=== PATIENT | female | born 1995 | race Caucasian/White ===

== ENCOUNTER 2017-07-22 09:31 | Emergency (ER) | payer SELFPAY ==
[2017-07-22 09:32] VITALS: BP 127/74; PULSE 80; RESP 16; TEMP 36.8; O2SAT 99; BMI 24.0
[2017-07-22 09:39] VITALS: BP 115/62; PULSE 96; RESP 96; O2SAT 94
--- NOTE | 2017-07-22 09:57 | EKG12_ITS ---
Test Reason : CP Blood Pressure : / mmHG Vent. Rate : 078 BPM Atrial Rate : 078 BPM P-R Int : 126 ms QRS Dur : 082 ms QT Int : 364 ms P-R-T Axes : 070 086 063 degrees QTc Int : 414 ms Normal sinus rhythm Normal ECG Confirmed by BHAVANI PAGE ([id number]), make up editor CHAPARRITA HARRIS ([id number] on 07/26/2017 1:09:30 PM Referred By: CASIE/BRIAN Confirmed By:BHAVANI PAGE
--- NOTE | 2017-07-22 10:00 | ED.VISSUMM ---
- ER Visit Summary Date of Service: 07/22/17 Chief Complaint: Pain, shortness of breath, fatigue, diffuse body aches for 2 months. History of Present Illness: The patient is a 22 F E Suzi. Patient has never been . She has required a blood transfusion one time when she had a fibroid. She states she was diagnosed with bronchitis around May 30. Since that time she has not felt well. She has chest pain from time to time., Shortness of breath, fatigue. She states she has had a 20 pound weight gain in the last 6 months. She denies any melena. Her last menstrual period was approximately a month ago and was normal in timing duration. She denies any dysuria. States she has had nausea and decreased intake. Really denies any abdominal pain. She does have a history of one time of having underactive thyroid but is currently not has not been on medications and moved out of that states it was not followed up for that. She is upcoming appointment with a local primary care physician. She has no history of PE or DVT. She does not smoke. She has had no recent surgery, immobilization or hospitalization. She has had no hemoptysis. She has had no leg pain or swelling. There is no family history of clotting disorders or blood clots. She is not on any type of control pill and she is a non-smoker. No risk factors for a PE or DVT. Physical Examination: Well appearing young female. Vital signs are stable afebrile. Pulse ox 99% room air no signs of hypoxia. HEENT exam is unremarkable. Neck nontender. No lymphadenopathy. Trachea midline. Lungs clear to auscultation bilaterally. Heart regular rate and rhythm no murmur. Abdomen soft and nontender. Normal bowel sounds no peritoneal signs. No giving way or masses. There is no inguinal or axillary or cervical lymphadenopathy. She is moving all 4 extremities. Neurovascular intact. Calves are nontender without edema. Neurologic exam is normal. She does have slightly flat affect. Back exam normal. Skin exam normal. Test Results: Radiologist. EKG sinus rhythm rate is 78 no acute abnormalities. CBC completely normal with an H&H of 14 and 41 and a normal white count. BMP normal with normal creatinine and gap. Serum test negative. TSH normal at 2.34. Emergency Department Course and Treatment: Since clinical exam is basically normal. She will be evaluated for her multitude of complaints of chest pain, shortness of breath and fatigue. Clinically I do not think this is cardiac in etiology and she is a normal EKG. I also do not feel this is a blood clot. Treatment Plan: Repeat exam the patient is doing well at 1116. I went over all testing with her and she will be discharged to home. Disposition: discharge Impression: Acute chest pain, fatigue and weight gain of uncertain etiology This note was generated with [employer] dictation software. It may contain incorrect words, spelling, and punctuation that were not noted in review of the chart prior to signing ED Disposition - Plan for ED Patient: Chief Complaint: Chest Pain Referrals: Care Physician,No Primary [NON-STAFF] -
--- NOTE | 2017-07-22 10:07 | RAD_ITS ---
STUDY: X-RAY CHEST REASON FOR EXAM: Female, 22 years old. Chest pain TECHNIQUE: A single frontal view of the chest was obtained. COMPARISON: May 29, 2017 FINDINGS: The lungs are adequately aerated. There are no focal airspace opacities. There is no demonstrated pleural abnormality. The cardiac silhouette is normal in size. The mediastinum and hilar regions are unremarkable. Normal visualized pulmonary arteries. Normal visualized aortic arch and descending thoracic aorta. The thoracic spine is unremarkable. The visualized ribs, clavicles, and shoulders are unremarkable. There is no demonstrated abnormality of the visualized upper abdomen. RAD/Chest 1 View (Portable) IMPRESSION: No acute cardiopulmonary abnormalities or changes. Electronically Signed: Lorenza Calhoun MD at 10:47 EST Tel Direct: [phone], Service support ,
[2017-07-22 10:17] LABS: Absolute Neutrophil Count 4.8 X10^3/uL (2.0-7.7); Basophil# 0.02 X10^3/uL; Basophil% 0.3 % (0-1); Eosinophil# 0.38 X10^3/uL; Eosinophils% 5.1 % (0-5); Hematocrit 41.9 % (37-47); Hemoglobin 14.5 g/dl (12.0-15.0); Lymphocyte % 23.9 % (19-41); Mean Corp Hgb Conc 34.6 g/gl (32-36); Mean Corpuscular Hgb 30.7 pg (27.0-32.0); Mean Corpuscular Volume 88.6 fL (81-99); Mean Platelet Vol. 9.4 fl (6.2-12.0); Monocyte# 0.48 X10^3/uL; Monocyte% 6.4 % (0-10); Neutrophil # 4.82 X10^3/uL (2.7-7.7); Platelet Count 304 K/mm3 (150-450); RBC Distribution Width SD 41.7 fl (35.1-43.9); Red Blood Count 4.73 M/mm3 (4.2-5.4); White Blood Count 7.5 K/mm3 (4.4-11.0)
[2017-07-22 10:21] LABS: POSITIVE COUNT NO; POSITIVE DIFFERENTIAL NO; POSITIVE MORPHOLOGY NO
[2017-07-22 10:36] LABS: Pregnancy, Serum, hCG Quali. NEGATIVE Negative (0-9 Nonpreg)
[2017-07-22 10:41] LABS: Anion Gap 8 (5-15); BUN 11 mg/dL (7-18); Calcium,Total 9.1 mg/dL (8.5-10.1); Chloride 106 mmol/L (98-107); Creatinine, Serum 0.84 mg/dL (0.55-1.02); EST Glomerular Filtration Rate 88 mL/min (>60); Est Glom Filt Rate - Afr Amer 106 mL/min (>60); Estimated Creatinine Clearance 85.43 ml/min; Glucose 87 mg/dL (74-106); Potassium 3.7 mmol/L (3.5-5.1); Sodium Level 140 mmol/L (136-145); Thyroid Stim Hormone (TSH) 2.34 uIU/mL (0.358-3.74)
--- NOTE | 2017-07-22 11:20 | ED.DEP ---
ED Disposition - Plan for ED Patient: Disposition: Home or Assisted Living Chief Complaint: Chest Pain Instructions: ED Chest Pain Atypical Unkn Cause Referrals: Tejas Bland MD [Primary Care Provider] - Keep [facility]o appointment Additional Instructions: All your lab tests, chest x-ray and EKG today were all normal. Follow-up your primary care physician with the next scheduled appointment.
[2017-07-22 11:21] VITALS: BP 105/60; PULSE 80; RESP 12; O2SAT 99
== END 2017-07-22 11:24 | disposition home or self-care (01) ==
PROVIDERS: Emergency Provider Emergency Medicine; Family Provider Family Medicine; PCP Family Medicine
DX: R07.9 Chest pain, unspecified (principal); R53.83 Other fatigue; R63.5 Abnormal weight gain
CPT/HCPCS: 71045; 80048; 84443; 84703; 85025; 93005; 99284; A4216

== ENCOUNTER 2018-01-29 23:03 | Emergency (ER) | payer SELFPAY ==
[2018-01-29 23:06] VITALS: BP 110/73; PULSE 82; RESP 15; TEMP 36.9; BMI 22.1
--- NOTE | 2018-01-29 23:41 | ED.VISSUMM ---
- ER Visit Summary Date of Service: 01/29/18 Chief Complaint: Headache History of Present Illness: The patient is a 22 F who is had a headache for approximately 1 week. She describes it as a pressure in the front part of her head. She states been intermittent and got worse today. She has had nausea throughout the week. This is associated with a headache. Denies any sinus pressure. No blurry vision, double vision or photophobia. She denies any trauma. She tried ibuprofen without any relief. Denies fevers. She has no formal diagnosis of migraine headaches. Physical Examination: Vital signs reviewed. HEENT exam unremarkable. Heart is regular rate and rhythm without murmurs. Lungs are clear to auscultation. Abdomen is soft and nontender. Extremities reveal no edema. Skin exam normal. Neurologic exam normal. Test Results: None performed Emergency Department Course and Treatment: I ordered IV fluids, Compazine and Benadryl. Before this could be administered the patient eloped from the emergency department Treatment Plan: [] Disposition: Elopement Impression: Headache This note was generated with [employer] dictation software. It may contain incorrect words, spelling, and punctuation that were not noted in review of the chart prior to signing ED Disposition - Plan for ED Patient: Disposition: Home or Assisted Living Chief Complaint: Headache Instructions: ED Headache Migraine Referrals: Olga Mott MD [STAFF PHYSICIAN] -
--- NOTE | 2018-01-29 23:43 | ED.DEP ---
ED Disposition - Plan for ED Patient: Disposition: Home or Assisted Living Chief Complaint: Headache Instructions: ED Headache Migraine Referrals: Olga Mott MD [STAFF PHYSICIAN] -
--- NOTE | 2018-01-29 23:52 | ED.RN ---
PT LEFT THE ROOM AFTER THE DOCTOR EVALUATED HER AND DID NOT RETURN
== END 2018-01-29 23:53 | disposition home or self-care (01) ==
LOC: ED 23:49
PROVIDERS: Emergency Provider Emergency Medicine; Family Provider Family Medicine; PCP Family Medicine
DX: R51 Headache (principal)
CPT/HCPCS: 99281